=== PATIENT | male | born 1965 | race African-American/Black ===

== ENCOUNTER 2019-12-08 12:20 | Inpatient (IN) | payer OTHER ==
[2019-12-08 13:48] VITALS: BMI 26.2
--- NOTE | 2019-12-08 16:47 | HP ---
CIWA Score Nausea/Vomitin Muscle Tremors: 2 Anxiety: 2 Agitation: 2 Paroxysmal Sweats: 2 Orientation: 0-Oriented Tacttile Disturbances: 1-Very Mild Itch/Numbness Auditory Disturbances: 1-Very Mild Visual Disturbances: 2-Mild Sensitivity Headache: 2-Mild CIWA-Ar Total Score: 16 - Admission Criteria OASAS Guidelines: Admission for Medically Managed Detox: Requires at least one of the followin. CIWA greater than 12 2. Seizures within the past 24 hours 3. Delirium tremens within the past 24 hours 4. Hallucinations within the past 24 hours 5. Acute intervention needed for co occurring medical disorder 6. Acute intervention needed for co occurring psychiatric disorder 7. Severe withdrawal that cannot be handled at a lower level of care (continued vomiting, continued diarrhea, abnormal vital signs) requiring intravenous medication and/or fluids 8. Patient presents the following: CIWA greater than 12 Admission Criteria Met: Admission criteria met Admission ROS [facility] Chief Complaint: I need detox from alcohol Allergies/Adverse Reactions: Allergies Allergy/AdvReac Type Severity Reaction Status Date / Time Penicillins Allergy Severe Difficulty Verified 12/08/19 13:40 Breathing History of Present Illness: 53 year old man presents for the first time for detox. He does not remember the last time he had detox. He reports blackout last night, denies seizures related to intoxication. Urine is positive for oxy but patient denies that being a problem and declines detox for that. Patient is admitted with purulent discharge from both eyes, started on eye drops for bilateral conjunctivitis. Exam Limitations: No Limitations - Ebola screening Have you traveled outside of the country in the last 21 days: No (N) Have you had contact with anyone from an Ebola affected area: No Have you been sick,other than usual withdrawal symptoms: No Do you have a fever: No - Review of Systems Constitutional: Loss of Appetite, Weakness, Unintentional Wgt. Loss EENT: reports: Blurred Vision (as well as discharge), Eye Pain, Tearing Respiratory: reports: Cough Cardiac: reports: Lightheadedness (sometimes) GI: reports: Nausea, Poor Fluid Intake, Abdominal cramping : reports: Frequency, Urgency Musculoskeletal: reports: Back Pain, Joint Pain, Muscle Pain, Muscle Weakness Integumentary: reports: Sweating Neuro: reports: Headache, Numbness, Tremors Endocrine: reports: No Symptoms Reported Hematology: reports: No Symptoms Reported Psychiatric: reports: Anxious, Depressed Other Systems: Reviewed and Negative Patient History - Patient Medical History Hx Anemia: No Hx Asthma: No Hx Chronic Obstructive Pulmonary Disease (COPD): No Hx Cancer: No Hx Cardiac Disorders: No Hx Congestive Heart Failure: No Hx Hypertension: Yes Hx Hypercholesterolemia: Yes Hx Pacemaker: No HX Cerebrovascular Accident: No Hx Seizures: No Hx Dementia: No Hx Diabetes: No Hx Gastrointestinal Disorders: Yes Hx Liver Disease: No Hx Genitourinary Disorders: No Hx Sexually Transmitted Disorders: No Hx Renal Disease (ESRD): No Hx Thyroid Disease: No Hx Human Immunodeficiency Virus (HIV): No Hx Hepatitis C: No Hx Depression: Yes Hx Suicide Attempt: No Hx Bipolar Disorder: No Hx Schizophrenia: No - Patient Surgical History Past Surgical History: Yes Hx Orthopedic Surgery: Yes (right shoulder trauma from fall) Other Surgical History: tonsillectomy - PPD History Previous Implant?: Yes Documented Results: Negative w/o proof Implanted On Prior R Admission?: No PPD to be Administered?: Yes - Smoking Cessation Smoking history: Current every day smoker Have you smoked in the past 12 months: Yes Aproximately how many cigarettes per day: 20 Hx Chewing Tobacco Use: No Initiated information on smoking cessation: Yes 'Breaking Loose' booklet given: 12/08/19 - Substances abused Alcohol Substance route: Oral Frequency: Daily Amount used: 1 pint of Rum Age of first use: 5 Date of last use: 12/07/19 Admission Physical Exam [facility] - Vital Signs Vital Signs: Vital Signs - 24 hr 12/08/19 13:44 Temperature 97.2 F L Pulse Rate 76 Respiratory 20 Rate Blood Pressure 128/76 - Physical General Appearance: Yes: No Apparent Distress HEENTM: Yes: Hearing grossly Normal, Normocephalic, Other (injected conjunctiva) Respiratory: Yes: Lungs Clear, Normal Breath Sounds, No Respiratory Distress, No Accessory Muscle Use Neck: Yes: No masses,lesions,Nodules, Supple Breast: Yes: Breast Exam Deferred Cardiology: Yes: Regular Rhythm, Regular Rate, S1, S2 Abdominal: Yes: Normal Bowel Sounds, Soft Genitourinary: Yes: Within Normal Limits Back: Yes: Normal Inspection Musculoskeletal: Yes: Back pain, Muscle Pain Extremities: Yes: Tremors Neurological: Yes: operations project manager II-XII NML intact, Alert, Normal Mood/Affect, Normal Response Integumentary: Yes: [place] Lymphatic: Yes: Within Normal Limits - Diagnostic (1) Alcohol dependence, uncomplicated Current Visit: Yes Status: Acute (2) Nicotine dependence Current Visit: Yes Status: Acute Qualifiers: Nicotine product type: cigarettes Substance use status: uncomplicated Qualified Code(s): F17.210 - Nicotine dependence, cigarettes, uncomplicated (3) Conjunctivitis Current Visit: Yes Status: Acute Qualifiers: Conjunctivitis type: acute Acute conjunctivitis type: bacterial (4) Diabetes mellitus Current Visit: Yes Status: Acute Qualifiers: Diabetes mellitus type: type 2 (5) Arthritis Current Visit: Yes Status: Chronic Cleared for Admission S - Detox or Rehab [facility] Level of Care: Medically Managed Detox Regimen/Protocol: Librium Claeared for Rehab Admission: No Breathalyzer - Breathalyzer Breathalyzer: 0 Urine Drug Screen - Test Device Lot number: [id number] Expiration date: 06/13/21 - Control Is test valid?: Yes - Results Drug screen NEGATIVE: No Urine drug screen results: GIDEON-Cocaine, OXY-Oxycodone Inpatient Rehab Admission - Rehab Decision to Admit Inpatient rehab admission?: No
[2019-12-08] MEDS ORDERED: BISMUTH SUBSALICYLATE 524 MG/30 ML UD PO PRN (16:54)
[2019-12-08] MEDS ORDERED: MAGNESIUM CITRATE 300 ML BOTTLE PO PRN (16:54)
[2019-12-08] MEDS ORDERED: MAG HYDROX/AL HYDROX/SIMETH 30 ML UNIT-DOSE CUP PO PRN (16:54)
[2019-12-08] MEDS ORDERED: hydrOXYzine PAMOATE 25 MG CAPSULE (FP) PO PRN (16:54)
[2019-12-08] MEDS ORDERED: chlordiazePOXIDE HCL 25 MG CAPSULE PO PRN (16:54)
[2019-12-08] MEDS ORDERED: ACETAMINOPHEN 325 MG TABLET (FP) PO PRN ×2 (16:54)
[2019-12-08] MEDS ORDERED: NICOTINE POLACRILEX 2 MG GUM BUC PRN (16:54)
[2019-12-08] MEDS ORDERED: IBUPROFEN 400 MG TABLET (FP) PO PRN (16:54)
[2019-12-08] MEDS ORDERED: MENTHOL/PHENOL 1 EACH UD MM PRN (16:54)
[2019-12-08] MEDS ORDERED: MAGNESIUM HYDROX 2400MG/30ML ORAL SUSPENSION 30 ML CUP PO PRN (16:54)
[2019-12-08] MEDS: METHOCARBAMOL 500 MG TABLET PO PRN (18:41)
[2019-12-08] MEDS: NICOTINE 14 MG/24 HOURS TOPICAL PATCH TD SCH (18:42)
[2019-12-08] MEDS: TOBRAMYCIN 0.3% OPHTH SOLN 5 ML BOTTLE OU SCH ×2 (18:50→23:11)
[2019-12-08] MEDS: chlordiazePOXIDE HCL 25 MG CAPSULE PO SCH (22:28)
[2019-12-08] MEDS: THIAMINE HCL 100 MG TABLET (FP) PO SCH (22:28)
[2019-12-08] MEDS: MELATONIN 5 MG TABLETS PO PRN (22:29)
[2019-12-09] MEDS: TOBRAMYCIN 0.3% OPHTH SOLN 5 ML BOTTLE OU SCH ×4 (05:17→23:03)
[2019-12-09] MEDS: chlordiazePOXIDE HCL 25 MG CAPSULE PO SCH ×4 (05:17→22:16)
[2019-12-09] MEDS: metFORMIN HCL 500 MG TABLET (FP) PO SCH ×2 (06:01→17:48)
--- NOTE | 2019-12-09 09:52 | PN ---
S CIWA - CIWA Score Nausea/Vomitin-Mild Nausea/No Vomiting Muscle Tremors: 3 Anxiety: 3 Agitation: 1-Slight > Activity Paroxysmal Sweats: 2 Orientation: 0-Oriented Tacttile Disturbances: 0-None Auditory Disturbances: 0-None Visual Disturbances: 1-Very Mild Sensitivity Headache: 1-Very Mild CIWA-Ar Total Score: 12 [facility] Progress Note (SOAP) Subjective: 53 years old male admitted on 12/08/19 for alcohol withdrawal sx management treating with librium detox regimen feeling ok today ate breakfast resting in bed feeling tired limited conversation with staff Objective: 12/09/19 09:51 Vital Signs Temperature 97.0 F L 12/09/19 09:20 Pulse Rate 84 12/09/19 09:20 Respiratory Rate 18 12/09/19 09:20 Blood Pressure 123/76 12/09/19 09:20 O2 Sat by Pulse Oximetry (%) Laboratory Last Values POC Glucometer 142 UNITS (80-120) 12/09/19 05:16 12/09/19 09:51 lab pending Assessment: 12/09/19 09:51 alcohol withdrawal Plan: librium regimen
[2019-12-09] MEDS: PRENATAL VITAMINS W/ FOLIC ACID TABLET (FP) PO SCH (10:39)
[2019-12-09] MEDS: amLODIPine BESYLATE 10 MG TABLET (FP) PO SCH (10:39)
[2019-12-09] MEDS: NICOTINE 14 MG/24 HOURS TOPICAL PATCH TD SCH (10:40)
[2019-12-09 11:09] LABS: HEMATOCRIT 41.2 % (35.4-49); HEMOGLOBIN 13.6 GM/dL (11.7-16.9); MCH 27.7 pg (25.7-33.7); MCHC 32.9 g/dl (32.0-35.9); MEAN CELL VOLUME 84.2 fl (80-96); MEAN PLT VOLUME 8.7 fl (7.5-11.1); PLATELET COUNT 239 K/MM3 (134-434); RBC 4.89 M/mm3 (4.00-5.60); RDW 14.6 % (11.9-15.9); WHITE BLOOD COUNT 4.5 K/mm3 (4.0-10.0)
[2019-12-09 11:18] LABS: ALBUMIN 3.3 g/dl (3.4-5.0); BILIRUBIN,TOTAL 0.2 mg/dL (0.2-1); BLOOD UREA NITROGEN 18.2 mg/dL (7-18); CALCIUM 8.4 mg/dL (8.5-10.1); CREATININE 0.9 mg/dL (0.55-1.3); POTASSIUM 4.3 mmol/L (3.5-5.1); TOT PROT 6.5 g/dl (6.4-8.2)
[2019-12-09] MEDS: THIAMINE HCL 100 MG TABLET (FP) PO SCH (22:16)
[2019-12-09] MEDS: METHOCARBAMOL 500 MG TABLET PO PRN (22:16)
[2019-12-09] MEDS: MELATONIN 5 MG TABLETS PO PRN (22:17)
[2019-12-10] MEDS: chlordiazePOXIDE HCL 25 MG CAPSULE PO SCH ×4 (05:30→22:19)
[2019-12-10] MEDS: TOBRAMYCIN 0.3% OPHTH SOLN 5 ML BOTTLE OU SCH ×4 (06:31→23:11)
[2019-12-10] MEDS: metFORMIN HCL 500 MG TABLET (FP) PO SCH (06:32)
[2019-12-10] MEDS: amLODIPine BESYLATE 10 MG TABLET (FP) PO SCH (10:05)
[2019-12-10] MEDS: PRENATAL VITAMINS W/ FOLIC ACID TABLET (FP) PO SCH (10:06)
[2019-12-10] MEDS: NICOTINE 14 MG/24 HOURS TOPICAL PATCH TD SCH (10:07)
--- NOTE | 2019-12-10 11:06 | PN ---
[facility] CIWA - CIWA Score Nausea/Vomitin-Mild Nausea/No Vomiting Muscle Tremors: 3 Anxiety: 2 Agitation: 1-Slight > Activity Paroxysmal Sweats: 2 Orientation: 0-Oriented Tacttile Disturbances: 0-None Auditory Disturbances: 1-Very Mild Visual Disturbances: 0-None Headache: 0-None Present CIWA-Ar Total Score: 10 S Progress Note (SOAP) Subjective: 53 years old male admitted on 12/08/19 for alcohol withdrawal sx management treating with librium detox regiment patient appears sleepy easy to aroused limited conversation with staff prefers to stay in bed today ammonia serum level for 12/11/19 librium dosage adjusted Objective: 12/10/19 11:06 Vital Signs Temperature 96.0 F L 12/10/19 09:22 Pulse Rate 106 H 12/10/19 09:22 Respiratory Rate 18 12/10/19 09:22 Blood Pressure 134/83 12/10/19 09:22 O2 Sat by Pulse Oximetry (%) Laboratory Last Values WBC 4.5 K/mm3 (4.0-10.0) 12/09/19 06:50 RBC 4.89 M/mm3 (4.00-5.60) 12/09/19 06:50 Hgb 13.6 GM/dL (11.7-16.9) 12/09/19 06:50 Hct 41.2 % (35.4-49) 12/09/19 06:50 MCV 84.2 fl (80-96) 12/09/19 06:50 MCH 27.7 pg (25.7-33.7) 12/09/19 06:50 MCHC 32.9 g/dl (32.0-35.9) 12/09/19 06:50 RDW 14.6 % (11.9-15.9) 12/09/19 06:50 Plt Count 239 K/MM3 (134-434) 12/09/19 06:50 MPV 8.7 fl (7.5-11.1) 12/09/19 06:50 Sodium 139 mmol/L (136-145) 12/09/19 06:50 Potassium 4.3 mmol/L (3.5-5.1) 12/09/19 06:50 Chloride 108 mmol/L (98-107) H 12/09/19 06:50 Carbon Dioxide 27 mmol/L (21-32) 12/09/19 06:50 Anion Gap 4 MMOL/L (8-16) L 12/09/19 06:50 BUN 18.2 mg/dL (7-18) H 12/09/19 06:50 Creatinine 0.9 mg/dL (0.55-1.3) 12/09/19 06:50 Est GFR (CKD-EPI)AfAm 111.05 12/09/19 06:50 Est GFR (CKD-EPI)NonAf 95.81 12/09/19 06:50 POC Glucometer 104 UNITS (80-120) 12/10/19 05:30 Random Glucose 105 mg/dL (74-106) 12/09/19 06:50 Calcium 8.4 mg/dL (8.5-10.1) L 12/09/19 06:50 Total Bilirubin 0.2 mg/dL (0.2-1) 12/09/19 06:50 AST 14 U/L (15-37) L 12/09/19 06:50 ALT 20 U/L (13-61) 12/09/19 06:50 Alkaline Phosphatase 104 U/L (45-117) 12/09/19 06:50 Total Protein 6.5 g/dl (6.4-8.2) 12/09/19 06:50 Albumin 3.3 g/dl (3.4-5.0) L 12/09/19 06:50 RPR Titer Nonreactive (NONREACTIVE) 12/09/19 06:50 lab noted Assessment: 12/10/19 11:07 alcohol withdrawal Plan: librium regiment
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
[2019-12-10] MEDS: PATIENT'S OWN MEDICATION (NON-FORMULARY) (Meloxicam 15 MG) PO SCH (19:28)
[2019-12-10] MEDS: METHOCARBAMOL 500 MG TABLET PO PRN (22:19)
[2019-12-10] MEDS: THIAMINE HCL 100 MG TABLET (FP) PO SCH (22:19)
[2019-12-11] MEDS ORDERED: chlordiazePOXIDE HCL 10 MG CAPSULE PO PRN
[2019-12-11] MEDS ORDERED: chlordiazePOXIDE HCL 10 MG CAPSULE PO SCH (05:00)
[2019-12-11] MEDS: chlordiazePOXIDE 5 MG CAPSULE PO SCH ×3 (06:29→22:00)
[2019-12-11] MEDS: TOBRAMYCIN 0.3% OPHTH SOLN 5 ML BOTTLE OU SCH ×3 (06:29→17:55)
[2019-12-11] MEDS: metFORMIN HCL 500 MG TABLET (FP) PO SCH (06:30)
--- NOTE | 2019-12-11 09:31 | PN ---
S CIWA - CIWA Score Nausea/Vomitin-No Nausea/No Vomiting Muscle Tremors: 3 Anxiety: 1-Mildly Anxious Agitation: 0-Normal Activity Paroxysmal Sweats: No Perspiration Orientation: 0-Oriented Tacttile Disturbances: 0-None Auditory Disturbances: 0-None Visual Disturbances: 0-None Headache: 1-Very Mild CIWA-Ar Total Score: 5 S Progress Note (SOAP) Subjective: 53 years old male admitted on 12/08/19 for alcohol withdrawal sx management treating with librium detox regiment ambulating on [address] with cane steady gait seen by psychiatrist no medical intervention at this time Objective: 12/11/19 09:31 Vital Signs Temperature 97.1 F L 12/11/19 09:10 Pulse Rate 89 12/11/19 09:10 Respiratory Rate 16 12/11/19 09:10 Blood Pressure 124/79 12/11/19 09:10 O2 Sat by Pulse Oximetry (%) Laboratory Last Values WBC 4.5 K/mm3 (4.0-10.0) 12/09/19 06:50 RBC 4.89 M/mm3 (4.00-5.60) 12/09/19 06:50 Hgb 13.6 GM/dL (11.7-16.9) 12/09/19 06:50 Hct 41.2 % (35.4-49) 12/09/19 06:50 MCV 84.2 fl (80-96) 12/09/19 06:50 MCH 27.7 pg (25.7-33.7) 12/09/19 06:50 MCHC 32.9 g/dl (32.0-35.9) 12/09/19 06:50 RDW 14.6 % (11.9-15.9) 12/09/19 06:50 Plt Count 239 K/MM3 (134-434) 12/09/19 06:50 MPV 8.7 fl (7.5-11.1) 12/09/19 06:50 Sodium 139 mmol/L (136-145) 12/09/19 06:50 Potassium 4.3 mmol/L (3.5-5.1) 12/09/19 06:50 Chloride 108 mmol/L (98-107) H 12/09/19 06:50 Carbon Dioxide 27 mmol/L (21-32) 12/09/19 06:50 Anion Gap 4 MMOL/L (8-16) L 12/09/19 06:50 BUN 18.2 mg/dL (7-18) H 12/09/19 06:50 Creatinine 0.9 mg/dL (0.55-1.3) 12/09/19 06:50 Est GFR (CKD-EPI)AfAm 111.05 12/09/19 06:50 Est GFR (CKD-EPI)NonAf 95.81 12/09/19 06:50 POC Glucometer 127 UNITS (80-120) 12/10/19 16:28 Random Glucose 105 mg/dL (74-106) 12/09/19 06:50 Calcium 8.4 mg/dL (8.5-10.1) L 12/09/19 06:50 Total Bilirubin 0.2 mg/dL (0.2-1) 12/09/19 06:50 AST 14 U/L (15-37) L 12/09/19 06:50 ALT 20 U/L (13-61) 12/09/19 06:50 Alkaline Phosphatase 104 U/L (45-117) 12/09/19 06:50 Total Protein 6.5 g/dl (6.4-8.2) 12/09/19 06:50 Albumin 3.3 g/dl (3.4-5.0) L 12/09/19 06:50 RPR Titer Nonreactive (NONREACTIVE) 12/09/19 06:50 lab noted Assessment: 12/11/19 09:31 alcohol withdrawal Plan: librium regiment
[2019-12-11] MEDS: PATIENT'S OWN MEDICATION (NON-FORMULARY) (Meloxicam 15 MG) PO SCH (10:16)
[2019-12-11] MEDS: PRENATAL VITAMINS W/ FOLIC ACID TABLET (FP) PO SCH (10:16)
[2019-12-11] MEDS: NICOTINE 14 MG/24 HOURS TOPICAL PATCH TD SCH (10:17)
[2019-12-11] MEDS: amLODIPine BESYLATE 10 MG TABLET (FP) PO SCH (10:19)
[2019-12-11] MEDS: THIAMINE HCL 100 MG TABLET (FP) PO SCH (22:55)
[2019-12-12] MEDS ORDERED: chlordiazePOXIDE HCL 10 MG CAPSULE PO SCH (05:00)
[2019-12-12] MEDS: chlordiazePOXIDE 5 MG CAPSULE PO SCH ×2 (05:32→17:57)
[2019-12-12] MEDS: TOBRAMYCIN 0.3% OPHTH SOLN 5 ML BOTTLE OU SCH ×5 (05:32→23:37)
[2019-12-12] MEDS: metFORMIN HCL 500 MG TABLET (FP) PO SCH (06:27)
--- NOTE | 2019-12-12 09:20 | PN ---
[facility] CIWA - CIWA Score Nausea/Vomitin-No Nausea/No Vomiting Muscle Tremors: 1-None Visible, but [place] Anxiety: 1-Mildly Anxious Agitation: 0-Normal Activity Paroxysmal Sweats: No Perspiration Orientation: 0-Oriented Tacttile Disturbances: 0-None Auditory Disturbances: 0-None Visual Disturbances: 0-None Headache: 0-None Present CIWA-Ar Total Score: 2 S Progress Note (SOAP) Subjective: 53 years old male admitted on 12/08/19 for alcohol withdrawal sx management treating with librium detox regimnen had ammonia elevation begin lactulose ambulating with cane with steady gait mild tremor and anxiety Objective: 12/12/19 09:19 Vital Signs Temperature 97.4 F L 12/12/19 08:04 Pulse Rate 85 12/12/19 08:04 Respiratory Rate 18 12/12/19 08:04 Blood Pressure 136/72 12/12/19 08:04 O2 Sat by Pulse Oximetry (%) Laboratory Last Values WBC 4.5 K/mm3 (4.0-10.0) 12/09/19 06:50 RBC 4.89 M/mm3 (4.00-5.60) 12/09/19 06:50 Hgb 13.6 GM/dL (11.7-16.9) 12/09/19 06:50 Hct 41.2 % (35.4-49) 12/09/19 06:50 MCV 84.2 fl (80-96) 12/09/19 06:50 MCH 27.7 pg (25.7-33.7) 12/09/19 06:50 MCHC 32.9 g/dl (32.0-35.9) 12/09/19 06:50 RDW 14.6 % (11.9-15.9) 12/09/19 06:50 Plt Count 239 K/MM3 (134-434) 12/09/19 06:50 MPV 8.7 fl (7.5-11.1) 12/09/19 06:50 Sodium 139 mmol/L (136-145) 12/09/19 06:50 Potassium 4.3 mmol/L (3.5-5.1) 12/09/19 06:50 Chloride 108 mmol/L (98-107) H 12/09/19 06:50 Carbon Dioxide 27 mmol/L (21-32) 12/09/19 06:50 Anion Gap 4 MMOL/L (8-16) L 12/09/19 06:50 BUN 18.2 mg/dL (7-18) H 12/09/19 06:50 Creatinine 0.9 mg/dL (0.55-1.3) 12/09/19 06:50 Est GFR (CKD-EPI)AfAm 111.05 12/09/19 06:50 Est GFR (CKD-EPI)NonAf 95.81 12/09/19 06:50 POC Glucometer 133 UNITS (80-120) 12/12/19 05:30 Random Glucose 105 mg/dL (74-106) 12/09/19 06:50 Calcium 8.4 mg/dL (8.5-10.1) L 12/09/19 06:50 Total Bilirubin 0.2 mg/dL (0.2-1) 12/09/19 06:50 AST 14 U/L (15-37) L 12/09/19 06:50 ALT 20 U/L (13-61) 12/09/19 06:50 Alkaline Phosphatase 104 U/L (45-117) 12/09/19 06:50 Ammonia 74.10 umol/L (11-32) H 12/11/19 08:00 Total Protein 6.5 g/dl (6.4-8.2) 12/09/19 06:50 Albumin 3.3 g/dl (3.4-5.0) L 12/09/19 06:50 RPR Titer Nonreactive (NONREACTIVE) 12/09/19 06:50 lab noted 12/12/19 09:20 ammonia elevation Assessment: 12/12/19 09:20 alcohol withdrawal Plan: librium regiment
[2019-12-12] MEDS: amLODIPine BESYLATE 10 MG TABLET (FP) PO SCH (09:37)
[2019-12-12] MEDS: PRENATAL VITAMINS W/ FOLIC ACID TABLET (FP) PO SCH (09:37)
[2019-12-12] MEDS: PATIENT'S OWN MEDICATION (NON-FORMULARY) (Meloxicam 15 MG) PO SCH (09:39)
[2019-12-12] MEDS: NICOTINE 14 MG/24 HOURS TOPICAL PATCH TD SCH (09:40)
[2019-12-12] MEDS: LACTULOSE 20 GM/30 ML UDC (FOR ORAL USE ONLY) PO SCH ×4 (09:40→22:14)
[2019-12-12] MEDS: THIAMINE HCL 100 MG TABLET (FP) PO SCH (22:14)
[2019-12-13] MEDS ORDERED: chlordiazePOXIDE HCL 10 MG CAPSULE PO ONE ×2 (05:00)
[2019-12-13] MEDS: TOBRAMYCIN 0.3% OPHTH SOLN 5 ML BOTTLE OU SCH (07:07)
[2019-12-13] MEDS: metFORMIN HCL 500 MG TABLET (FP) PO SCH (07:08)
[2019-12-13 09:19] VITALS: BP 138/71; PULSE 90; TEMP 96.1
--- NOTE | 2019-12-13 13:37 | DS ---
[facility] Detox Discharge Summary Admission Date: 12/08/19 Discharge Date: 12/13/19 - History Present History: Alcohol Dependence Additional Comments: 53 years old male admitted on 12/08/19 for alcohol withdrawal sx management treated with librium detox regiment patient has completed librium regiment and tolerated well alert oriented x 3 ambulating with cane steady gait respiratory clear lungs bilaterally on auscultation abdominal soft no rebound tenderness skin warm and dry Pertinent Past History: encourage the patient picking up lactulose from the pharmacy for ammonia elevation - Physical Exam Results Vital Signs: Vital Signs Temperature 96.1 F L 12/13/19 08:34 Pulse Rate 90 12/13/19 08:34 Respiratory Rate 20 12/13/19 08:34 Blood Pressure 138/71 12/13/19 08:34 O2 Sat by Pulse Oximetry (%) Pertinent Admission Physical Exam Findings: alcohol withdrawal Laboratory Last Values WBC 4.5 K/mm3 (4.0-10.0) 12/09/19 06:50 RBC 4.89 M/mm3 (4.00-5.60) 12/09/19 06:50 Hgb 13.6 GM/dL (11.7-16.9) 12/09/19 06:50 Hct 41.2 % (35.4-49) 12/09/19 06:50 MCV 84.2 fl (80-96) 12/09/19 06:50 MCH 27.7 pg (25.7-33.7) 12/09/19 06:50 MCHC 32.9 g/dl (32.0-35.9) 12/09/19 06:50 RDW 14.6 % (11.9-15.9) 12/09/19 06:50 Plt Count 239 K/MM3 (134-434) 12/09/19 06:50 MPV 8.7 fl (7.5-11.1) 12/09/19 06:50 Sodium 139 mmol/L (136-145) 12/09/19 06:50 Potassium 4.3 mmol/L (3.5-5.1) 12/09/19 06:50 Chloride 108 mmol/L (98-107) H 12/09/19 06:50 Carbon Dioxide 27 mmol/L (21-32) 12/09/19 06:50 Anion Gap 4 MMOL/L (8-16) L 12/09/19 06:50 BUN 18.2 mg/dL (7-18) H 12/09/19 06:50 Creatinine 0.9 mg/dL (0.55-1.3) 12/09/19 06:50 Est GFR (CKD-EPI)AfAm 111.05 12/09/19 06:50 Est GFR (CKD-EPI)NonAf 95.81 12/09/19 06:50 POC Glucometer 132 UNITS (80-120) 12/13/19 05:38 Random Glucose 105 mg/dL (74-106) 12/09/19 06:50 Calcium 8.4 mg/dL (8.5-10.1) L 12/09/19 06:50 Total Bilirubin 0.2 mg/dL (0.2-1) 12/09/19 06:50 AST 14 U/L (15-37) L 12/09/19 06:50 ALT 20 U/L (13-61) 12/09/19 06:50 Alkaline Phosphatase 104 U/L (45-117) 12/09/19 06:50 Ammonia 74.10 umol/L (11-32) H 12/11/19 08:00 Total Protein 6.5 g/dl (6.4-8.2) 12/09/19 06:50 Albumin 3.3 g/dl (3.4-5.0) L 12/09/19 06:50 RPR Titer Nonreactive (NONREACTIVE) 12/09/19 06:50 Vital Signs Temperature 96.1 F L 12/13/19 08:34 Pulse Rate 90 12/13/19 08:34 Respiratory Rate 20 12/13/19 08:34 Blood Pressure 138/71 12/13/19 08:34 O2 Sat by Pulse Oximetry (%) lab noted patient agrees to bringing in lab report to his endocrainologist for follow up - Treatment Hospital Course: Detox Protocol Followed, Detoxed Safely, Responded well, Discharged Condition Good, Rehab Referral Accepted Patient has Accepted a Rehab Referral to: [facility] Medication Discharge Medications: Ambulatory Orders Amlodipine Besylate 10 mg PO DAILY 12/08/19 Meloxicam [Mobic (Nf) -] 15 mg PO DAILY 12/08/19 metFORMIN HCL [Metformin ER Osmotic] 1,000 mg PO DAILY 12/08/19 Lactulose (Oral Use) [Cephulac -] 20 gm PO QID #1 [facility] [place] 12/13/19 - Diagnosis (1) Alcohol dependence, uncomplicated Status: Acute (2) Diabetes mellitus Status: Chronic Qualifiers: Diabetes mellitus type: type 2 Diabetes mellitus assisted insulin use: without assisted use Diabetes mellitus complication status: without complication Qualified Code(s): E11.9 - Type 2 diabetes mellitus without complications (3) Nicotine dependence Status: Acute Qualifiers: Nicotine product type: cigarettes Substance use status: in withdrawal Qualified Code(s): F17.213 - Nicotine dependence, cigarettes, with withdrawal (4) Substance induced mood disorder Status: Suspected - AMA Did Patient Leave Against Medical Advice: No CIWA Score - CIWA Score Nausea/Vomitin-No Nausea/No Vomiting Muscle Tremors: 1-None Visible, but [place] Anxiety: 0-No Anxiety, at Ease Agitation: 0-Normal Activity Paroxysmal Sweats: No Perspiration Orientation: 0-Oriented Tacttile Disturbances: 0-None Auditory Disturbances: 0-None Visual Disturbances: 0-None Headache: 0-None Present CIWA-Ar Total Score: 1
--- NOTE | 2019-12-13 15:07 | PN ---
[facility] Progress Note Note: seen by psychiatrist while in detox no medical intervention necessary at this time
[2019-12-14] MEDS ORDERED: chlordiazePOXIDE 5 MG CAPSULE PO ONE (05:00)
== END 2019-12-13 08:53 | disposition home or self-care (01) | DRG 775 ==
LOC: YASAS 12:20 → Y3N 17:28
PROVIDERS: ADMIT Allergy & Immunology; ATTEND Allergy & Immunology
PROC: HZ2ZZZZ Detoxification Services for Substance Abuse Treatment (ICD-10-PCS; principal; 2019-12-08)
DX: F10.230 Alcohol dependence with withdrawal, uncomplicated (principal); F17.213 Nicotine dependence, cigarettes, with withdrawal; F19.24 Other psychoactive substance dependence with psychoactive substance-induced mood disorder; I10 Essential (primary) hypertension; E11.9 Type 2 diabetes mellitus without complications; E72.20 Disorder of urea cycle metabolism, unspecified; M17.0 Bilateral primary osteoarthritis of knee; H10.33 Unspecified acute conjunctivitis, bilateral; E78.00 Pure hypercholesterolemia, unspecified; Z79.84 Long term (current) use of oral hypoglycemic drugs; Z87.820 Personal history of traumatic brain injury; Z88.0 Allergy status to penicillin
CPT/HCPCS: 36415; 80053; 82140; 82962; 85027; 86593

== ENCOUNTER 2020-12-31 19:17 | Emergency (ER) | payer OTHER ==
[2020-12-31 20:09] VITALS: BMI 27.3
[2021-01-01 06:30] VITALS: BP 158/92; PULSE 68; TEMP 98.3
== END 2021-01-01 07:15 | disposition home or self-care (01) ==
LOC: JER 19:17
DX: F10.129 Alcohol abuse with intoxication, unspecified (principal); W19.XXXA Unspecified fall, initial encounter
CPT/HCPCS: 70450-TC; 82962; 99284-25

== ENCOUNTER 2021-01-01 07:59 | Inpatient (IN) | payer OTHER ==
[2021-01-01 09:26] VITALS: BMI 25.7
[2021-01-01] MEDS ORDERED: PATIENT'S OWN MEDICATION (NON-FORMULARY) (Meloxicam [Mobic] 15 MG Tablet) PO SCH (10:15)
[2021-01-01] MEDS ORDERED: ONDANSETRON *ODT* 4 MG TABLET SL PRN (10:16)
[2021-01-01] MEDS ORDERED: MAGNESIUM HYDROX 2400MG/30ML ORAL SUSPENSION 30 ML CUP PO PRN (10:16)
[2021-01-01] MEDS ORDERED: BISMUTH SUBSALICYLATE 524 MG/30 ML UD PO PRN (10:16)
[2021-01-01] MEDS ORDERED: MENTHOL/PHENOL 1 EACH UD MM PRN (10:16)
[2021-01-01] MEDS ORDERED: ACETAMINOPHEN 325 MG TABLET (FP) PO PRN ×2 (10:16)
[2021-01-01] MEDS ORDERED: MAGNESIUM CITRATE 300 ML BOTTLE PO PRN (10:16)
[2021-01-01] MEDS ORDERED: METHOCARBAMOL 500 MG TABLET PO PRN (10:16)
[2021-01-01] MEDS ORDERED: MAG HYDROX/AL HYDROX/SIMETH 30 ML UNIT-DOSE CUP PO PRN (10:16)
[2021-01-01] MEDS: GABAPENTIN 300 MG CAPSULE PO SCH (12:18)
[2021-01-01] MEDS: LORazepam 2 MG TABLET PO SCH ×2 (12:19→18:49)
[2021-01-01] MEDS: amLODIPine BESYLATE 10 MG TABLET (FP) PO SCH (12:19)
[2021-01-01] MEDS: NICOTINE 14 MG/24 HOURS TOPICAL PATCH TD SCH (12:25)
[2021-01-01] MEDS: hydrOXYzine PAMOATE 25 MG CAPSULE (FP) PO SCH ×2 (13:30→18:49)
[2021-01-01 15:35] LABS: POTASSIUM 4.7 mmol/L (3.5-5.1)
[2021-01-01 15:41] LABS: HEMOGLOBIN 15.1 GM/dL (11.7-16.9); MCH 28.5 pg (25.7-33.7); MCHC 32.8 g/dl (32.0-35.9); MEAN PLT VOLUME 9.5 fl (7.5-11.1); PLATELET COUNT 281 K/MM3 (134-434); RDW 15.8 % (11.9-15.9); WHITE BLOOD COUNT 6.4 K/mm3 (4.0-10.0)
[2021-01-01 15:42] LABS: CREATININE 1.1 mg/dL (0.55-1.3)
[2021-01-01 15:44] LABS: ALBUMIN 3.7 g/dl (3.4-5.0); BILIRUBIN,TOTAL 0.4 mg/dL (0.2-1); BLOOD UREA NITROGEN 18.6 mg/dL (7-18); TOT PROT 7.5 g/dl (6.4-8.2)
[2021-01-01 16:06] LABS: SYPHILIS W/ RPR CONF NON-REACTIVE (NONREACTIVE)
[2021-01-01 16:35] LABS: HIV INTERPRETATION NEGATIVE (NEGATIVE)
[2021-01-01] MEDS: LORazepam 1 MG TABLET PO PRN (18:47)
[2021-01-01] MEDS ORDERED: MELATONIN 5 MG TABLETS PO SCH (22:00)
[2021-01-02] MEDS: LORazepam 2 MG TABLET PO SCH ×5 (00:03→23:04)
[2021-01-02] MEDS: THIAMINE HCL 100 MG TABLET (FP) PO SCH ×2 (00:03→23:04)
[2021-01-02] MEDS: hydrOXYzine PAMOATE 25 MG CAPSULE (FP) PO SCH ×6 (00:03→23:07)
[2021-01-02] MEDS: LORazepam 1 MG TABLET PO PRN (01:20)
[2021-01-02] MEDS: IBUPROFEN 400 MG TABLET (FP) PO PRN (05:50)
[2021-01-02] MEDS: amLODIPine BESYLATE 10 MG TABLET (FP) PO SCH (11:12)
[2021-01-02] MEDS: PRENATAL VITAMINS W/ FOLIC ACID TABLET (FP) PO SCH (11:12)
[2021-01-02] MEDS: GABAPENTIN 300 MG CAPSULE PO SCH (11:12)
[2021-01-02] MEDS: NICOTINE 14 MG/24 HOURS TOPICAL PATCH TD SCH (11:12)
[2021-01-02] MEDS ORDERED: MELATONIN 5 MG TABLETS PO PRN (11:17)
[2021-01-03] MEDS: hydrOXYzine PAMOATE 25 MG CAPSULE (FP) PO SCH ×5 (06:25→22:24)
[2021-01-03] MEDS: LORazepam 1 MG TABLET PO SCH ×4 (06:26→22:24)
[2021-01-03] MEDS: IBUPROFEN 400 MG TABLET (FP) PO PRN ×2 (06:33→17:49)
[2021-01-03] MEDS: amLODIPine BESYLATE 10 MG TABLET (FP) PO SCH (10:50)
[2021-01-03] MEDS: GABAPENTIN 300 MG CAPSULE PO SCH (10:51)
[2021-01-03] MEDS: NICOTINE 14 MG/24 HOURS TOPICAL PATCH TD SCH (10:51)
[2021-01-03] MEDS: PRENATAL VITAMINS W/ FOLIC ACID TABLET (FP) PO SCH (10:53)
[2021-01-03] MEDS: NICOTINE POLACRILEX 2 MG GUM BUC PRN ×3 (15:13→22:55)
[2021-01-03] MEDS: THIAMINE HCL 100 MG TABLET (FP) PO SCH (22:24)
[2021-01-04] MEDS ORDERED: LORazepam 0.5 MG TABLET PO PRN
[2021-01-04] MEDS ORDERED: LORazepam 0.5 MG TABLET PO SCH (05:00)
[2021-01-04 06:22] VITALS: BP 150/89; PULSE 81; TEMP 97.8
[2021-01-04] MEDS: hydrOXYzine PAMOATE 25 MG CAPSULE (FP) PO SCH (07:29)
[2021-01-04] MEDS ORDERED: LACTULOSE 20 GM/30 ML UDC (FOR ORAL USE ONLY) PO SCH (18:00)
[2021-01-05] MEDS ORDERED: LORazepam 0.5 MG TABLET PO ONE (05:00)
[2021-01-05] MEDS ORDERED: cloNIDine HCL 0.1 MG TABLET PO PRN (13:23)
== END 2021-01-04 10:00 | disposition left against medical advice (07) | DRG 770 ==
LOC: YASAS 07:59 → Y6N 11:13
PROVIDERS: ADMIT Allergy & Immunology; ATTEND Allergy & Immunology
PROC: HZ2ZZZZ Detoxification Services for Substance Abuse Treatment (ICD-10-PCS; principal; 2021-01-01)
DX: F10.230 Alcohol dependence with withdrawal, uncomplicated (principal); F14.20 Cocaine dependence, uncomplicated; F17.210 Nicotine dependence, cigarettes, uncomplicated; F19.282 Other psychoactive substance dependence with psychoactive substance-induced sleep disorder; F19.24 Other psychoactive substance dependence with psychoactive substance-induced mood disorder; F41.8 Other specified anxiety disorders; F32.9 Major depressive disorder, single episode, unspecified; F43.10 Post-traumatic stress disorder, unspecified; I10 Essential (primary) hypertension; E78.5 Hyperlipidemia, unspecified; E11.9 Type 2 diabetes mellitus without complications; Z79.84 Long term (current) use of oral hypoglycemic drugs; M17.0 Bilateral primary osteoarthritis of knee; R79.89 Other specified abnormal findings of blood chemistry; Z87.820 Personal history of traumatic brain injury; Z88.0 Allergy status to penicillin
CPT/HCPCS: 36415; 80053; 82140; 82962; 85027; 86780; 87389; C9803; U0003